=== PATIENT | female | born 1990 | race Caucasian/White ===

== ENCOUNTER 2018-05-11 16:19 | Emergency (ER) | payer BC ==
[2018-05-11 16:46] VITALS: BP 139/96
--- NOTE | 2018-05-11 16:47 | UC ---
Shoulder Pain HPI - HPI Summary HPI Summary: 28 y/o female presents to the urgent care c/o upper back pain radiating to RT side of neck and RT shoulder for the past 2 weeks. Pt states pain is 5/10 intermittent w/ certain movement. However for the past 2 days pain is worse at night time and she hasn't been able to sleep well. 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 Denies any previous injury. She sometime feels mild numbness and tingling sensation over the RT arm. Pt has not taking anything to alleviate symptoms. Pt denies fever, SOB, chest pain, abdominal pain N/V/D. - History of Current Complaint Stated Complaint: SHOULDER, BACK, AND NECK PAIN Time Seen by Provider: 05/11/18 16:44 Hx Obtained From: Patient Hx Last Menstrual Period: three weeks ago - spotting. pt has missed control ?: No - on BCP Onset/Duration: Gradual Onset, Lasting Weeks - 2 weeks, Still Present, Worse Since - 1 week Timing: Constant Severity Initially: Mild Severity Currently: Moderate Location Of Pain: Is Discrete @ - upper back, Radiates To - RT side of neck and RT shoulder blade Pain Intensity: 5 Pain Scale Used: 0-10 Numeric Character: Dull, Spasmodic Aggravating Factor(s): Movement, Lifting, Abduction Alleviating Factor(s): Rest, OTC Meds Associated Signs And Symptoms: Positive: Numbness/Tingling - mild at times. Negative: Swelling, Redness, Bruising, Fever, Weakness Related History: Dominant Hand Right - Risk Factors Non-Orthopedic Risk Factor: Negative DVT Risk Factors: Negative Septic Arthritis Risk Factor: Negative - Allergies/Home Medications Allergies/Adverse Reactions: Allergies Allergy/AdvReac Type Severity Reaction Status Date / Time ciprofloxacin [From Ciloxan] Allergy Itching Verified 05/11/18 16:46 Home Medications: Home Medications Albuterol HFA INHALER* [Ventolin HFA Inhaler*] 2 puff INH ONCE PRN 05/11/18 [ History Confirmed 05/11/18] Levonorgestrel-Ethin Estradiol [Levonor-Eth Estrad 0.15-0.03] 1 tab PO DAILY 06/16 [History Confirmed 05/11/18] Pantoprazole Sodium [Protonix] 40 mg PO DAILY 05/11/18 [History Confirmed ] PMH/Surg Hx/FS Hx/Imm Hx Previously Healthy: Yes Respiratory History: Asthma - Surgical History Surgical History: Yes Surgery Procedure, Year, and Place: tongue surgery - Family History Known Family History: Positive: Hypertension - Social History Occupation: Employed Full-time Lives: With Family Alcohol Use: Occasionally Substance Use Type: None Smoking Status (MU): Never Smoked Tobacco Review of Systems All Other Systems Reviewed And Are Negative: Yes Constitutional: Positive: Negative Skin: Positive: Negative Eyes: Positive: Negative ENT: Positive: Negative Respiratory: Positive: Negative Cardiovascular: Positive: Negative Gastrointestinal: Positive: Negative Genitourinary: Positive: Negative Motor: Positive: Negative Neurovascular: Positive: Negative Musculoskeletal: Positive: Decreased ROM - RT shoulder blade, Other: - acute upper back pain and RT side of neck pain Neurological: Positive: Negative Psychological: Positive: Negative Is Patient Immunocompromised?: No Physical Exam - Summary Physical Exam Summary: Vital signs:reviewed General: Patient is a well developed female without any distress that is laying comfortably in the examining table w/o any apparent distress. Skin: [place], warm, dry HEAD AND FACE: No signs of trauma. EYES: PERRLA, EOMI x 2. EARS: Hearing grossly intact. MOUTH: Oropharynx within normal limits. NECK: Supple, trachea is midline, no cervical lymphadenopathy, no JVD, no carotid bruit, no c-spine tenderness, neck with decrease ROM on flexion and Rt lateral bending due to pain. No meningeal signs, no Kernig's or brudzinskis signs. Decrease ROM on bending forward and Rt lateral bending due to pain. CHEST: Symmetric, no tenderness at palpation LUNGS: CTA bilaterally, no rales, rhonchi or wheezing CVS: RRR, no murmur, rub, or gallop ABDOMEN: soft and Nontender without masses, no guarding or rebound. Bowel sounds are active. No Hepato-splenomegaly. No signs of inguinal hernias. BACK: Patient walked into the urgent care room with symmetric ambulation, No signs of limping, antalgic, able to bear weight. No signs of trauma, no soft tissue or muscle tenderness, RT side upper back spasm in the Paraspinal muscles of the T3-T4. No masses palpated. Point tenderness at Rt shoulder blade, no swelling or ecchymosis observed, No CVAT, no flank ecchymosis . No sacroiliac notch tenderness, No saddle anesthesia.FROM: flexion/ extension/ lateral bending and rotation, note if limited or causes pain Straight Leg Raise: negative.Patellar reflexes: brisk, symmetric Muscle strength lower extremities. Dorsiflexion/ plantar flexion of ankles. Heel/ toe walk Lower extremities: Femoral, popliteal, posterior tibial, and dorsalis pedis pulses with in normal, Neurological: WNL Psychological: WNL Skin: dry and warm Triage Information Reviewed: Yes Vital Signs: Initial Vital Signs Temp 98.4 F 05/11/18 16:40 Pulse 86 05/11/18 16:40 Resp 18 05/11/18 16:40 BP 139/96 05/11/18 16:40 Pulse Ox 100 05/11/18 16:40 Shoulder Course/Dx - Course Course Of Treatment: 28 y/o female presents to the urgent care c/o upper back pain radiating to RT side of neck and RT shoulder for the past 2 weeks. Pt states pain is 5/10 intermittent w/ certain movement. However for the past 2 days pain is worse at night time and she hasn't been able to sleep well. 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 Denies any previous injury. She sometime feels mild numbness and tingling sensation over the RT arm. Pt has not taking anything to alleviate symptoms. Pt denies fever, SOB, chest pain, abdominal pain N/V/D.Hx obtained. Pt w/ RT side upper back spasm in the Paraspinal muscles of the T3-T4. No masses palpated. Point tenderness at Rt shoulder blade, no swelling or ecchymosis observed on examination.Cervical and Thoracolumbar X-ray ordered: Impression: Possible cervical muscle spasm and Mild lordosis over L1L2. Pt Rx Ibuprofen PO and flexeril PO and given a PT referral. Patient was instructed to the f/u wit orthopedic from sports medicine in 1 week if symptoms do not improve or worsen. Patient understands and agrees. Patient is able to ambulate freely w/o aid or limp.Pt's BP is elevated today advised to decrease salt in diet, monitor BP and f/u with PCP for further management. Plan of care was discussed with the patient and patient understands and agrees. All questions were answered at patient satisfaction. Pt left clinic hemodynamically stable. - Differential Dx/Diagnosis Differential Diagnosis/HQI/PQRI: Contusion, Dislocation, Fracture (Closed), Sprain, Strain, Tendonitis Provider Diagnoses: 1- Acute upper back strain. 2- Scoliosis. 3- Muscle spasm. 4-Elevated BP w/o Hx of HTN Discharge - Sign-Out/Discharge Documenting (check all that apply): Patient Departure - D/C home All imaging exams completed and their final reports reviewed: Yes - Discharge Plan Condition: Stable Disposition: HOME Prescriptions: Cyclobenzaprine TAB* [Flexeril 10 MG TAB*] 10 mg PO TID PRN #21 tab PRN Reason: Spasms - Back Ibuprofen TAB* [Motrin TAB* 600 MG] 600 mg PO Q6H PRN #30 tab PRN Reason: back pain Patient Education Materials: Scoliosis in Children (DC), Low-Sodium Diet (ED), Thoracic Back Strain (ED) Referrals: [facility] [Provider Group] - 1 Week [facility]IAN REFERRAL [Outside] - 1 Week Additional Instructions: 1- Please take Ibuprofen PO as directed after meals for pain. 2- Take Flexeril PO as directed for muscle spasm. Please do not drive while taking the medication. 3- Avoid strenuous exercise of heavy lifting. 4- Please follow up with Orthopedic Dr from Sports Medicine or your PCP in 1 week if not improvement of symptoms, for further management. 5-Your BP is elevated today. please decrease salt in your diet, monitor BP and if it continues to be elevated please f/u with your PCP for further management - Billing Disposition and Condition Condition: STABLE Disposition: Home
== END 2018-05-11 18:17 | disposition home or self-care (01) ==
LOC: UCEAST 16:19
DX: S29.012A Strain of muscle and tendon of back wall of thorax, initial encounter (principal); M41.9 Scoliosis, unspecified; M62.830 Muscle spasm of back; R03.0 Elevated blood-pressure reading, without diagnosis of hypertension; J45.909 Unspecified asthma, uncomplicated; Z88.1 Allergy status to other antibiotic agents
CPT/HCPCS: 72050; 72080; 99202; G0463

== ENCOUNTER 2018-06-17 11:47 | Emergency (ER) | payer BC, OTHER ==
[2018-06-17 12:11] VITALS: BP 127/87
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
== END 2018-06-17 13:29 | disposition home or self-care (01) ==
LOC: UCEAST 11:47
DX: S00.83XA Contusion of other part of head, initial encounter (principal); S00.81XA Abrasion of other part of head, initial encounter; S60.511A Abrasion of right hand, initial encounter; J45.909 Unspecified asthma, uncomplicated; Z88.1 Allergy status to other antibiotic agents; V47.5XXA Car driver injured in collision with fixed or stationary object in traffic accident, initial encounter; Y92.9 Unspecified place or not applicable
CPT/HCPCS: 99211; G0463

== ENCOUNTER 2018-11-06 15:16 | Emergency (ER) | payer BC, OTHER ==
[2018-11-06 16:04] VITALS: BP 113/67
--- NOTE | 2018-11-06 16:07 | UC ---
Skin Complaint HPI - HPI Summary HPI Summary: 28 yo female presents with bug bite to left elbow first noticed 3 days ago. She tells me that she noticed a little red kerrie on her left elbow 3 days ago, but since that time has developed a large red area on her arm/elbow that is swollen and warm to touch. The school nurse marked the area with a purple marking pen today. She denies fever or decreased ROM to the elbow. Unsure what may have bit her. - History of Current Complaint Chief Complaint: U[facility]kin Time Seen by Provider: 11/06/18 16:06 Stated Complaint: SKIN COMPLAINT Hx Obtained From: Patient Hx Last Menstrual Period: 3month pill, 2 mo ago Onset/Duration: Gradual Onset Onset Severity: Mild Current Severity: Moderate Pain Intensity: 5 Pain Scale Used: 0-10 Numeric - Allergy/Home Medications Allergies/Adverse Reactions: Allergies Allergy/AdvReac Type Severity Reaction Status Date / Time ciprofloxacin [From Ciloxan] Allergy Itching Verified 11/06/18 16:04 Home Medications: Home Medications Levonorgestrel-Ethin Estradiol [Jolessa 0.15-0.03 mg] 1 tab PO 11/06/18 [History ] PMH/Surg Hx/FS Hx/Imm Hx Respiratory History: Asthma - Surgical History Surgical History: Yes Surgery Procedure, Year, and Place: tongue surgery - Family History Known Family History: Positive: Hypertension - Social History Occupation: Employed Full-time Lives: With Family Alcohol Use: Rare Substance Use Type: None Smoking Status (MU): Never Smoked Tobacco Review of Systems All Other Systems Reviewed And Are Negative: Yes Constitutional: Positive: Negative Skin: Positive: Other - Bug bite left elbow Respiratory: Positive: Negative Cardiovascular: Positive: Negative Neurovascular: Positive: Negative Neurological: Positive: Negative Psychological: Positive: Negative Physical Exam - Summary Physical Exam Summary: GENERAL: NAD. WDWN. No pain distress. SKIN: LEFT ELBOW: overlying the anatomical location of the radial head - there are two superficial puncture wounds 1-2mm apart. There is mild erythema, edema, and warmth extending circumferentially approx 6.0cm from this site. Mild TTP. No drainage, streaking, bleeding, or FB. NECK: Supple. Nontender. No lymphadenopathy. CHEST: No accessory muscle use. Breathing comfortably and in no distress. CV: Pulses intact. Cap refill <2seconds MSK: LEFT ELBOW: FROM without pain. NEURO: Alert. PSYCH: Age appropriate behavior. Triage Information Reviewed: Yes Vital Signs: Initial Vital Signs Temp 98.5 F 11/06/18 16:01 Pulse 54 11/06/18 16:01 Resp 18 11/06/18 16:01 BP 113/67 11/06/18 16:01 Pulse Ox 100 11/06/18 16:01 Vital Signs Reviewed: Yes Course/Dx - Course Course Of Treatment: Suspect cellulitis due to bug/spider bite. Will start her with keflex and have her monitor the area and purple marked area for any increased redness, pain, or swelling. Advised to apply ice and be rechecked if she develops a fever or worsening symptoms. - Diagnoses Provider Diagnosis: Cellulitis of left arm Discharge - Sign-Out/Discharge Documenting (check all that apply): Patient Departure All imaging exams completed and their final reports reviewed: No Studies - Discharge Plan Condition: Stable Disposition: HOME Prescriptions: Cephalexin CAP* [Keflex CAP*] 500 mg PO BID #14 cap Patient Education Materials: Cellulitis (DC) Referrals: Grisel BOND,Lori Harrison [Primary Care Provider] - Additional Instructions: If you develop a fever, shortness of breath, chest pain, new or worsening symptoms - please call your PCP or go to the ED immediately. 1) Apply ice to the area to decrease pain and inflammation 2) If you notice the redness and/or pain spreading or if you develop a fever - please be rechecked immediately - Billing Disposition and Condition Condition: STABLE Disposition: Home - Attestation Statements Provider Attestation: This patient was not seen by me. I was available for consult.
== END 2018-11-06 16:21 | disposition home or self-care (01) ==
LOC: UCEAST 15:16
DX: L03.114 Cellulitis of left upper limb (principal); J45.909 Unspecified asthma, uncomplicated; Z82.49 Family history of ischemic heart disease and other diseases of the circulatory system; Z88.1 Allergy status to other antibiotic agents
CPT/HCPCS: 99212; G0463

== ENCOUNTER 2018-12-24 15:53 | Emergency (ER) | payer BC ==
[2018-12-24 17:29] VITALS: BP 120/72
--- NOTE | 2018-12-24 17:49 | UC ---
Skin Complaint HPI - HPI Summary HPI Summary: 3 day history of increasingly inflamed bites both lower legs. Unaware of any fleas in the household. Several areas are crusted with excoriated skin. --about 2 weeks of dysuria off and on, with some urinary frequency. No flank pain or fever. --has been fatigued for several weeks, with a one day history of 2 episodes of emesis and loose stools on Friday the . Now appetite is normal. - History of Current Complaint Chief Complaint: [facility]kin Time Seen by Provider: 12/24/18 17:37 Stated Complaint: SKIN COMPLAINT Hx Obtained From: Patient Hx Last Menstrual Period: 2 MONTHS AGO (ON CONTROL) Onset/Duration: Gradual Onset, Lasting Days Skin Exposure Onset/Duration: Days Ago Onset Severity: Moderate Current Severity: Moderate Pain Intensity: 4 Location: Diffuse - scattered bites both lower legs. Aggravating Factor(s): Touch Alleviating Factor(s): Antihistamines - taking benadryl nightly. Associated Signs & Symptoms: Positive: Rash - pruritic - Allergy/Home Medications Allergies/Adverse Reactions: Allergies Allergy/AdvReac Type Severity Reaction Status Date / Time ciprofloxacin [From Ciloxan] Allergy Itching Verified 12/24/18 17:29 PMH/Surg Hx/FS Hx/Imm Hx Previously Healthy: Yes - Surgical History Surgical History: Yes Surgery Procedure, Year, and Place: tongue surgery - Family History Known Family History: Positive: Unknown - she does not know her family history wel, Hypertension - Social History Occupation: Employed Full-time Lives: Alone Alcohol Use: Rare Substance Use Type: None Smoking Status (MU): Never Smoked Tobacco Review of Systems All Other Systems Reviewed And Are Negative: Yes Constitutional: Positive: Fatigue Genitourinary: Positive: Dysuria, Frequency, Other - not recently sexually active, not suspicious of STI's Musculoskeletal: Positive: Negative Neurological: Positive: Negative Is Patient Immunocompromised?: No Physical Exam Triage Information Reviewed: Yes Appearance: Well-Appearing, No Pain Distress Vital Signs: Initial Vital Signs Temp 98.1 F 12/24/18 17:24 Pulse 68 12/24/18 17:24 Resp 16 12/24/18 17:24 BP 120/72 12/24/18 17:24 Pulse Ox 100 12/24/18 17:24 Eyes: Positive: Conjunctiva Clear ENT: Positive: Pharynx normal Neck: Positive: Supple, Nontender, No Lymphadenopathy Respiratory: Positive: Lungs clear, Normal breath sounds Cardiovascular: Positive: RRR, No Murmur Abdomen Description: Positive: Nontender, No Organomegaly, Soft Musculoskeletal Exam: Normal Neurological: Positive: Alert, Muscle Tone Normal Psychological Exam: Normal Skin Exam: Other - urticarial rash on back Legs with about 10 scattered raised papules, some excoriated. Approx 10 cm area medial left knee/upper calf raised, red and warm. Erythematous patches right medial thigh are warm and red, each about 10 cm diameter. Course/Dx - Course Course Of Treatment: cephalexin for suspected early cellulitis right leg Prednisone dose for urticaria; begin zyrtec and topical steroid. Continue benadryl as needed. UA not suggestive of UTI, suggested follow up with PMD. - Differential Diagnoses - Skin Complaint Differential Diagnoses: Cellulitis, Urticaria, Other - UTI - Diagnoses Provider Diagnosis: Cellulitis of right leg, Bites and stings, insect, Urinary frequency Discharge - Sign-Out/Discharge Documenting (check all that apply): Patient Departure All imaging exams completed and their final reports reviewed: No Studies - Discharge Plan Condition: Stable Disposition: HOME Prescriptions: Cephalexin CAP* [Keflex 500 CAP*] 500 mg PO TID #15 cap Triamcinolone 0.5% CREAM(NF) [Triamcinolone 0.5% CREAM*] 1 applic TOPICAL BID PRN #30 mg PRN Reason: Pruritis Patient Education Materials: Cellulitis (ED), Urticaria (ED) Referrals: Grisel BOND,Lori Harrison [Primary Care Provider] - Additional Instructions: For suspected skin infection: use cephalexin 3 times daily for 5 days. Triamcinolone cream will help to relieve the swelling in the bites. Because you have a hive like reaction, I suggest using Zyrted (cetirazine)10mg once daily to help suppress the itching. You can continue benadryl at night. Cool compress the bites in addition to the above. Follow up with your PMD if the fatigue does not resolve. For itchy bites --Aveeno anti-itch lotion used early on can help to decrease itching and swelling. - Billing Disposition and Condition Condition: STABLE Disposition: Home
[2018-12-24] MEDS ORDERED: predniSONE TAB* 20 MG PO ONE (17:59)
== END 2018-12-24 18:25 | disposition home or self-care (01) ==
LOC: UCEAST 15:53
DX: S80.861A Insect bite (nonvenomous), right lower leg, initial encounter (principal); L03.115 Cellulitis of right lower limb; W57.XXXA Bitten or stung by nonvenomous insect and other nonvenomous arthropods, initial encounter; Y92.9 Unspecified place or not applicable; R35.0 Frequency of micturition; R30.0 Dysuria; R53.83 Other fatigue
CPT/HCPCS: 81003; 99212; G0463; J7512

== ENCOUNTER 2019-03-19 15:03 | Emergency (ER) | payer BC ==
--- NOTE | 2019-03-19 15:42 | UC ---
Throat Pain/Nasal Ignacio HPI - HPI Summary HPI Summary: 28-year-old female with a sore throat over the past 2 days. She's also had fever intermittently. 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 - History of Current Complaint Stated Complaint: SORE THROAT Time Seen by Provider: 03/19/19 15:11 Hx Obtained From: Patient Hx Last Menstrual Period: 2 MONTHS AGO (ON CONTROL) ?: No Onset/Duration: Gradual Onset Severity: Mild Cough: None Associated Signs & Symptoms: Positive: Fever - Allergies/Home Medications Allergies/Adverse Reactions: Allergies Allergy/AdvReac Type Severity Reaction Status Date / Time ciprofloxacin [From Ciloxan] Allergy Itching Verified 03/19/19 15:49 PMH/Surg Hx/FS Hx/Imm Hx Previously Healthy: Yes GI/ History: Gastroesophageal Reflux - Surgical History Surgical History: Yes Surgery Procedure, Year, and Place: tongue surgery - Family History Known Family History: Positive: Unknown - she does not know her family history wel, Hypertension - Social History Occupation: Employed Full-time Alcohol Use: Rare Substance Use Type: None Smoking Status (MU): Never Smoked Tobacco Review of Systems All Other Systems Reviewed And Are Negative: Yes ENT: Positive: Sore Throat Is Patient Immunocompromised?: No Physical Exam Triage Information Reviewed: Yes Appearance: Well-Appearing, No Pain Distress, Well-Nourished Vital Signs Reviewed: Yes Eyes: Positive: Conjunctiva Clear ENT: Positive: Hearing grossly normal, Pharynx normal - Clear/yellowish postnasal drainage., TMs normal, Uvula midline Neck: Positive: Supple, Nontender, Enlarged Nodes @ - Very mild bilateral tonsillar lymph node enlargement. Respiratory: Positive: Lungs clear, Normal breath sounds, No respiratory distress, No accessory muscle use Cardiovascular: Positive: RRR, No Murmur, Pulses Normal, Brisk Capillary Refill Abdomen Description: Positive: Nontender, No Organomegaly, Soft. Negative: CVA Tenderness (R), CVA Tenderness (L) Bowel Sounds: Positive: Present Musculoskeletal Exam: Normal Neurological Exam: Normal Psychological Exam: Normal Skin Exam: Normal Throat Pain/Nasal Course/Dx - Course Course Of Treatment: Rapid strep: Negative She can do warm saltwater gargles, throat lozenges and may alternate Tylenol every 4 hours and Motrin every 8 hours for pain or fever. She's to follow-up in 3 or 4 days if no improvement. - Differential Dx/Diagnosis Provider Diagnosis: Pharyngitis Discharge ED - Sign-Out/Discharge Documenting (check all that apply): Patient Departure All imaging exams completed and their final reports reviewed: No Studies - Discharge Plan Condition: Good Disposition: HOME Patient Education Materials: Pharyngitis (ED) Referrals: Grisel BOND,Lori Harrison [Primary Care Provider] - Additional Instructions: Increase fluids, may alternate Tylenol every 4 hours and Motrin every 8 hours for fever or pain. Follow-up with your primary care provider in 3 or 4 days if no improvement. - Billing Disposition and Condition Condition: GOOD Disposition: Home - Attestation Statements Provider Attestation: Per institutional requirements, I have reviewed the chart, however, I was not consulted specifically or made aware of this patient by the midlevel provider. I did not personally evaluate, interact with , or disposition this patient.
[2019-03-19 15:52] VITALS: BP 109/73
== END 2019-03-19 16:07 | disposition home or self-care (01) ==
LOC: UCEAST 15:03
DX: J02.9 Acute pharyngitis, unspecified (principal); Z88.1 Allergy status to other antibiotic agents
CPT/HCPCS: 87651; 99211; G0463